=== PATIENT | female | born 1970 | race Two or more races ===

== ENCOUNTER 2017-07-11 23:57 | Emergency (ER) | payer MEDICAID ==
[~2017-07-11] VITALS: Ht 157.5 cm; Wt 56.7 kg
[2017-07-12] MEDS ORDERED: NKM (00:08)
[2017-07-12] MEDS ORDERED: Norco 5mg/325mg tab ORAL ONE (00:30)
--- NOTE | 2017-07-12 00:37 | Emergency Room Report ---
History of Present Illness General Chief Complaint: Headache Source: Patient Present Illness [facility] This is a 47-year-old female with no past medical history. She presents with chief complaint of headache for the last 2 weeks. On and off but more severe tonight. Mostly in the right side. Radiate diffusely. Mild nausea but no vomiting. No fever or chills. No focal deficit. Denies any other complaint. Allergies: Coded Allergies: No Known Allergies (Unverified , 07/12/17) Patient History Past Medical History: see triage record, old chart reviewed Past Surgical History: other Pertinent Family History: none Social History: Denies: smoking Last Menstrual Period: 3 months ago Now: No Immunizations: other Reviewed Nursing Documentation: PMH: Agreed, PSxH: Agreed Nursing Documentation-PMH Past Medical History: No Stated History Review of Systems Eye: Denies: eye pain, blurred vision ENT: Denies: ear pain, nose congestion, throat swelling Respiratory: Denies: cough, shortness of breath Cardiovascular: Denies: chest pain, palpitations Gastrointestinal: Denies: abdominal pain, diarrhea, nausea, vomiting Musculoskeletal: Denies: back pain, joint pain Skin: Denies: rash Neurological: Reports: headache, Denies: numbness Endocrine: Denies: increased thirst, increased urine Hematologic/Lymphatic: Denies: easy bruising All Other Systems: negative except mentioned in HPI Physical Exam Vital Signs Date Time Temp Pulse Resp B/P (MAP) Pulse Ox O2 Delivery O2 Flow Rate FiO2 07/12/17 00:03 97.5 62 16 131/86 97 Room Air vitals normal Sp02 EP Interpretation: reviewed, normal General Appearance: well appearing, no apparent distress, alert Head: normocephalic, atraumatic Eyes: bilateral eye PERRL, bilateral eye EOMI, bilateral eye Fundiscopic - Sharp disc ENT: hearing grossly normal, normal pharynx Neck: full range of motion, supple, no meningismus Respiratory: chest non-tender, lungs clear, normal breath sounds Cardiovascular #1: regular rate, rhythm, no murmur Gastrointestinal: normal bowel sounds, non tender, no mass, no organomegaly, no bruit, non-distended Musculoskeletal: back normal, gait/station normal, normal range of motion Psychiatric: mood/affect normal Skin: warm/dry Medical Decision Making Diagnostic Impression: Primary Impression: Headache Qualified Codes: R51 - Headache ER Course Patient with headache. According to her daughters patient does frequently. Question depression. No evidence of bleed or mass effect. I did a CT scan because patient never had workup done before. No evidence of neoplastic process. We'll discharge home. CT/MRI/US Diagnostic Results CT/MRI/US Diagnostic Results : Imaging Test Ordered: CT head Impression negative per radiologist Last Vital Signs Date Time Temp Pulse Resp B/P (MAP) Pulse Ox O2 Delivery O2 Flow Rate FiO2 07/12/17 00:03 97.5 62 16 131/86 97 Room Air Status: improved Disposition: HOME, SELF-CARE Condition: Stable Scripts Acetamin/Butalbital/Caffeine* (FIORICET*) 1 Ea Tab 1 TAB ORAL Q6H, #30 TAB 0 Refills Prov: JOSE DUNN M.D. 07/12/17 Amitriptyline HCl (ELAVIL*) 25 Mg Tablet 25 MG ORAL BEDTIME, #30 TAB Prov: JOSE DUNN M.D. 07/12/17 Referrals: NOT CHOSEN IPA/,REFERRING (PCP) Patient Instructions: General Headache Without Cause Additional Instructions: Followup with your DrAshley in 7 days. Return if symptom worsen. JOSE DUNN M.D. Jul 12, 2017 00:37
[2017-07-12] MEDS ORDERED: AMITRIPTYLINE25 MG ORAL (01:00)
[2017-07-12] MEDS ORDERED: FIORICET1 EA ORAL (01:00)
[2017-07-12 01:12] VITALS: BP 131/86
--- NOTE | 2017-07-12 08:17 | Diagnostic Imaging Report ---
Indication: Headache Technique: Continuous helical CT scanning of the head was performed without intravenous contrast material. Axial and coronal 5 mm sections were generated. Dose: Total Dose Length Product - DLP [address] Dose Index - CTDIvol(s) 70.38 mGy. Comparison:None. Findings: The ventricular system is normal in size and configuration. There is no shift of midline structures. No abnormal extra-axial fluid collections are noted. There is no evidence of intracerebral bleeding. No other abnormal high or low density areas are noted within the brain. Impression: Normal CT scan of the head without contrast material. The above report is concordant with preliminary reading by [employer] . The CT scanner at [facility] is accredited by the [employer] and the scans are performed using protocols designed to limit radiation exposure to as low as reasonably achievable to attain images of sufficient resolution adequate for diagnostic evaluation.
== END 2017-07-12 01:10 | disposition home or self-care (01) ==
LOC: EMR 07-12 00:29
DX: R51 Headache (principal)
CPT/HCPCS: 70450; 99284

== ENCOUNTER 2018-02-22 12:53 | Emergency (ER) | payer MEDICAID ==
[~2018-02-22] VITALS: Ht 154.9 cm; Wt 59.0 kg
[~2018-02-22 12:53] MED LIST: AMITRIPTYLINE25 MG ORAL; FIORICET1 EA ORAL; NKM
[2018-02-22 13:05] VITALS: BP 139/88
--- NOTE | 2018-02-22 13:23 | Emergency Room Report ---
History of Present Illness General Chief Complaint: Headache Source: Patient Present Illness HPI 47-year-old female patient presents ER complaining of headache 1 week. Patient reports headache is intermittent. Reports RAZO generalized over entire head. Patient denies vomiting, vision loss, fever. Patient denies muscle weakness. Patient denies pain with urination. Patient denies chest pain, shortness of breath, abdominal pain. Patient reports history of headache. Patient was seen here at [facility] a few months ago and had a head CT performed, CT was negative at that time. Patient reports she has not followed up with a her care provider or neurologist since that time. Patient reports numerous stressors at home. denies history of cardiovascular disease. denies history of seizures. Allergies: Coded Allergies: No Known Allergies (Unverified , 07/12/17) Patient History Past Medical History: see triage record Reviewed Nursing Documentation: PMH: Agreed; PSxH: Agreed Nursing Documentation-PMH Past Medical History: No Stated History Review of Systems All Other Systems: negative except mentioned in HPI Physical Exam Vital Signs Date Time Temp Pulse Resp B/P (MAP) Pulse Ox O2 Delivery O2 Flow Rate FiO2 02/22/18 13:01 97.9 68 20 139/88 99 Room Air 97.9 Sp02 EP Interpretation: reviewed, normal General Appearance: well appearing, no apparent distress, alert, GCS 15, non- toxic Head: normocephalic, atraumatic Eyes: bilateral eye normal inspection, bilateral eye PERRL ENT: hearing grossly normal, normal pharynx, no angioedema, normal voice, uvula midline, moist mucus membranes Neck: full range of motion Respiratory: lungs clear, normal breath sounds, no rhonchi, no respiratory distress, no accessory muscle use, no wheezing, speaking full sentences Cardiovascular #1: regular rate, rhythm, no edema Musculoskeletal: back normal, digits/nails normal, gait/station normal, normal range of motion, non-tender Neurologic: alert, oriented x3, responsive, motor strength/tone normal, sensory intact, other - negative Kernig, negative Brudzinski Psychiatric: mood/affect normal Skin: no rash Lymphatic: no adenopathy Medical Decision Making PA Attestation Dr. Anthony is my supervising Physician whom patient management has been discussed with. Diagnostic Impression: Primary Impression: Headache ER Course Pt presents to ED c/o headache. DDX considered but are not limited to migraine, cluster RAZO, tension RAZO. Negative kernig, negative Brudzinski, low suspicion for meningitis. VITAL SIGNS are WNL, patient is afebrile CT performed at last ER visit, in no worsening of symptoms since that time, no history of injury, talking and smiling without difficulty, nontoxic-appearing, patient does not need repeat CT at this time. ER COURSE - Metoclopramide 10mg IM for pain, N/V; possible SE: tics, spasm; CI seizures, HTN - Benadryl 25mg IM ; possible SE: drowsiness Patient asked that the headache may be related to stress at home, inform patient stress may be a cause of headache. Inform patient to follow-up with neuro. Instructed to followup with primary care provider per referral and treatment as needed. Patient reports understanding and agreement treatment plan. Patient reports pain improved. Patient is AOx3, neurologically intact, nontoxic appearing, and ambulatory. DISCHARGE: -Rx provided Excedrin Migraine At this time pt is stable for d/c to home. Patient is resting comfortably, in no acute distress, nontoxic appearing, talking and smiling. Will provide with patient care instructions and any necessary prescriptions. Patient to take medication as instructed. Care plan and follow-up instructions provided. Patient questions asked and answered. Patient instructed to follow-up with primary care provider in the next 3 days and discuss further referral with PCP to neurologist. ER precautions given. Patient instructed to return to ER immediately for any new or worsening of symptoms including but not limited to fever, neck stiffness , vision changes, and neurological symptoms. Last Vital Signs Date Time Temp Pulse Resp B/P (MAP) Pulse Ox O2 Delivery O2 Flow Rate FiO2 02/22/18 13:05 97.9 68 20 139/88 99 Room Air 97.9 Disposition: HOME, SELF-CARE Condition: Stable Scripts Aspirin/Acetaminophen/Caffeine (EXCEDRIN MIGRAINE CAPLET) 1 Each Tablet 1 EACH PO DAILY, #30 TAB Prov: Brayan Mario 02/22/18 Referrals: NOT CHOSEN IPA/,REFERRING (PCP) Patient Instructions: General Headache Without Cause Additional Instructions: Followup with primary care provider in 3 -5 days. Discuss referral to Neuro. Take medications as directed. Patient questions asked and answered. ER precautions given, patient instructed to return to ER immediately for any new or worsening of symptoms. Brayan Mario Feb 22, 2018 13:23
[2018-02-22] MEDS ORDERED: EXCEDRIN MIGRA1 EAC1 PO (13:27)
[2018-02-22 13:37] VITALS: BP 139/88
== END 2018-02-22 13:38 | disposition home or self-care (01) ==
LOC: EMR 13:09
DX: R51 Headache (principal)
CPT/HCPCS: 99284

== ENCOUNTER 2018-04-08 15:47 | Emergency (ER) | payer MEDICAID ==
[~2018-04-08] VITALS: Ht 157.5 cm; Wt 54.4 kg
[~2018-04-08 15:47] MED LIST changes: +EXCEDRIN MIGRA1 EAC1 PO
[2018-04-08 15:53] VITALS: BP 149/94
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
[2018-04-08 17:51] VITALS: BP 121/75
[2018-04-08] MEDS ORDERED: Lidocaine 2% Visc 15ml soln ORAL ONE (18:45)
[2018-04-08] MEDS ORDERED: LIDOCAINE VISC100 ML ORAL (18:57)
[2018-04-08] MEDS ORDERED: TYLENOL EXTRA500 MG ORAL (18:57)
[2018-04-08] MEDS ORDERED: ZANTAC150 MG ORAL (18:57)
[2018-04-08 19:02] VITALS: BP 121/75
--- NOTE | 2018-04-09 08:25 | Diagnostic Imaging Report ---
Indication: Abdominal pain Technique: Supine view of the abdomen Comparison: none Findings: The bowel gas pattern is unremarkable. No gaseous distention of large or small bowel. No unusual masses or calcifications. There are cholecystectomy clips Impression: No acute process This agrees with the preliminary interpretation provided by the emergency room physician
--- NOTE | 2018-04-09 08:26 | Diagnostic Imaging Report ---
Indication: Chest pain Technique: 2 views of the chest Comparison: none Findings: Lungs and pleural spaces are clear. Heart size is normal. Impression: No acute process
== END 2018-04-08 19:02 | disposition home or self-care (01) ==
LOC: EMR 16:28
DX: S30.1XXA Contusion of abdominal wall, initial encounter (principal); Y04.2XXA Assault by strike against or bumped into by another person, initial encounter; Y92.9 Unspecified place or not applicable
CPT/HCPCS: 71046; 74018; 99284

== ENCOUNTER 2019-06-02 11:59 | Emergency (ER) | payer MEDICAID ==
[~2019-06-02] VITALS: Ht 160 cm; Wt 56.7 kg
[~2019-06-02 11:59] MED LIST changes: +LIDOCAINE VISC100 ML ORAL; +TYLENOL EXTRA500 MG ORAL; +ZANTAC150 MG ORAL
[2019-06-02 12:08] VITALS: BP 140/82
--- NOTE | 2019-06-02 12:41 | Emergency Room Report ---
History of Present Illness General Chief Complaint: Pain Source: Patient Present Illness HPI 49-year-old female with no significant past medical history here complaining of over 1 months of left shoulder pain. Patient denies any fall or injury. Reports that her pain starts in the left shoulder and radiates to her left arm and fingers. Rating the pain 7 out of 10 upon certain movements. Has taken Tylenol for pain with minimal relief. Has not yet seen her primary care physician. Denies having any chest pain or pain radiation spreading the chest going into the arm. Denies tingling and numbness. 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 Denies shortness of breath, neck pain, headache, dizziness, and all other associated symptoms. Denies history of arthritis Allergies: Coded Allergies: No Known Allergies (Unverified , 07/12/17) Patient History Past Medical History: see triage record Past Surgical History: unable to obtain Pertinent Family History: none Now: No Immunizations: UTD Reviewed Nursing Documentation: PMH: Agreed; PSxH: Agreed Nursing Documentation-PMH Past Medical History: No Stated History Review of Systems All Other Systems: negative except mentioned in HPI Physical Exam Vital Signs Date Time Temp Pulse Resp B/P (MAP) Pulse Ox O2 Delivery O2 Flow Rate FiO2 06/02/19 12:02 97.9 51 20 140/82 (101) 98 Room Air Sp02 EP Interpretation: reviewed, normal General Appearance: normal inspection, well appearing, no apparent distress, alert, GCS 15 Head: normocephalic, atraumatic Eyes: bilateral eye normal inspection, bilateral eye PERRL ENT: normal pharynx Neck: normal inspection, full range of motion, supple, thyroid normal Respiratory: lungs clear, no rhonchi, no respiratory distress, no retraction, no accessory muscle use, no wheezing Cardiovascular #1: normal inspection, regular rate, rhythm, no edema, no murmur , normal capillary refill Gastrointestinal: normal inspection, non tender, soft Rectal: deferred Genitourinary: no CVA tenderness Musculoskeletal: back normal, digits/nails normal, gait/station normal, non- tender, other - pain upon palpation of left shoulder Neurologic: normal inspection, alert, oriented x3 Psychiatric: normal inspection, judgement/insight normal Skin: palpation normal, normal color Lymphatic: normal inspection, no adenopathy Medical Decision Making PA Attestation All my diagnosis and treatment plans were reviewed ad discussed with my supervising physician Dr. Gill Diagnostic Impression: Primary Impression: Tendonitis of shoulder, left ER Course 49-year-old female with no significant past medical history here complaining of over 1 months of left shoulder pain. Patient denies any fall or injury. Reports that her pain starts in the left shoulder and radiates to her left arm and fingers. Rating the pain 7 out of 10 upon certain movements. Has taken Tylenol for pain with minimal relief. Has not yet seen her primary care physician. Denies having any chest pain or pain radiation spreading the chest going into the arm. Denies tingling and numbness. 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 Denies shortness of breath, neck pain, headache, dizziness, and all other associated symptoms. Denies history of arthritis Ddx considered but are not limited to : Shoulder sprain, tendinitis, bursitis, fracture left shoulder Vital signs: are WNL, pt. is afebrile H&PE are most consistent with: ORDERS: Left shoulder x-ray, naproxen, Robaxin ED INTERVENTIONS: Tendinitis left shoulder DISCHARGE: At this time pt. is stable for d/c to home. Will provide printed patient care instructions, and any necessary prescriptions. Care plan and follow up instructions have been discussed with the patient prior to discharge. Take medication as directed follow-up with a primary care provider physical therapy may help Other X-Ray Diagnostic Results Other X-Ray Diagnostic Results : X-Ray ordered: left shoulder # of Views/Limited Vs Complete: 3 View Indication: Pain EP Interpretation: Yes PA Xray: Interpretation reviewed, by supervising MD, and agrees with findings. Interpretation: no dislocation, no soft tissue swelling, no fractures Impression: No acute disease Electronically Signed by: Karla Ayala PA-C Last Vital Signs Date Time Temp Pulse Resp B/P (MAP) Pulse Ox O2 Delivery O2 Flow Rate FiO2 06/02/19 12:08 97.9 75 20 140/82 98 Room Air Disposition: HOME, SELF-CARE Condition: Stable Referrals: NOT CHOSEN IPA/,REFERRING (PCP) Patient Instructions: Bicipital Tendonitis Additional Instructions: Follow-up with your primary care provider take medication as directed physical therapy may help avoid strenuous physical activity Karla Duarte Jun 02, 2019 12:41
[2019-06-02] MEDS ORDERED: NAPROXEN500 M2 ORAL (13:29)
[2019-06-02] MEDS ORDERED: ROBAXIN500 MG PO (13:29)
[2019-06-02 13:35] VITALS: BP 132/82
--- NOTE | 2019-06-02 13:35 | NUR ---
ER DISCHARGE NOTE: Patient is cleared to be discharged per ERMD, pt is aox4, on room air, with stable vital signs. pt was given dc and prescription instructions, pt was able to verbalize understanding, pt id band removed without complications. pt is able to ambulate with steady gait. pt took all belongings.
--- NOTE | 2019-06-02 13:42 | Diagnostic Imaging Report ---
Indication: left shoulder pain Findings: 3 views of the left shoulder were obtained. Alignment of the left shoulder is normal. No acute fracture is identified. Soft tissues are unremarkable. Impression: No acute injury
== END 2019-06-02 13:35 | disposition home or self-care (01) ==
LOC: EMR 12:23
DX: M75.92 Shoulder lesion, unspecified, left shoulder (principal)
CPT/HCPCS: 99283

== ENCOUNTER 2019-11-29 15:07 | Emergency (ER) | payer MEDICAID ==
[~2019-11-29] VITALS: Ht 157.5 cm; Wt 55.3 kg
[~2019-11-29 15:07] MED LIST changes: +NAPROXEN500 M2 ORAL; +ROBAXIN500 MG PO
[2019-11-29 15:25] VITALS: BP 126/83
--- NOTE | 2019-11-29 15:25 | NUR ---
ED Nurse Note: Pt walked into ED c/o sore throat and neck pain x 3 weeks. Denies fever and chills. Not in any distress. VSS.
--- NOTE | 2019-11-29 15:36 | NUR ---
ED Nurse Note: ERMD at bedside.
--- NOTE | 2019-11-29 15:41 | Emergency Room Report ---
History of Present Illness General Chief Complaint: Sore Throat Source: Patient Present Illness HPI Is a 49-year-old female presents after increased sore throat as well as difficulty with swallowing. Patient reports having had increased pain with movement of her neck. Denies recent trauma. She reports having recent sore throat as well as bilateral ear pain. Denies any fever. Had gradual onset of symptoms. Denies any vomiting or diarrhea. Denies prior medical history. Denies any visual changes. Allergies: Coded Allergies: No Known Allergies (Unverified , 07/12/17) Nursing Documentation-[facility] Past Medical History: No Stated History Physical Exam Vital Signs Date Time Temp Pulse Resp B/P (MAP) Pulse Ox O2 Delivery O2 Flow Rate FiO2 11/29/19 15:19 98.1 62 18 126/83 (97) 99 Room Air Medical Decision Making ER Course Presented for sore throat. Differential diagnosis included but was not limited to meningitis, exudative tonsillitis, retropharyngeal abscess, epiglottitis, strep pharyngitis. Because of complexity of patient's case imaging studies were ordered. CT of the neck was ordered without IV contrast due to patient's difficulty with range of motion of her neck. Last Vital Signs Date Time Temp Pulse Resp B/P (MAP) Pulse Ox O2 Delivery O2 Flow Rate FiO2 11/29/19 15:25 98.1 62 18 126/83 99 Room Air Shiraz Gill MD Nov 29, 2019 15:41
[2019-11-29] MEDS ORDERED: Dexamethasone 4mg/ml vial IM ONE (15:45)
--- NOTE | 2019-11-29 16:10 | NUR ---
ED Nurse Note: Pt ambulated to CT accompanied by tech.
--- NOTE | 2019-11-29 16:30 | NUR ---
Note ariel in EDM - 11/29/19 at 1645 by JOSE ED Nurse Note: Fly swabs done, sent to labs.
--- NOTE | 2019-11-29 16:30 | NUR ---
ED Nurse Note: Flu swabs done, sent to labs.
--- NOTE | 2019-11-29 17:03 | Diagnostic Imaging Report ---
Indication: Neck pain. Technique: Continuous helical imaging of the neck was obtained transaxially from the skull base to the upper thoracic spine. 2-D coronal and sagittal reformatted images were obtained. Total Dose length Product (DLP): 185.[address] Dose Index Volume (CTDIvol): 6.3 mGy Comparison: None Findings: Skull base structures are unremarkable. Mastoids are clear bilaterally. The visualized nasopharynx, oropharynx, and hypopharynx appears unremarkable. There is no mass or asymmetry identified. Supraglottic structures including the epiglottis and aryepiglottic folds appear normal. There is no abscess or evidence of abnormal fluid collection within the neck. The larynx is unremarkable. The subglottic airway is clear. There is no lymphadenopathy. The parotid, thyroid, submandibular and sublingual glands appear unremarkable. Impression: Negative contrast-enhanced CT of the neck. The CT scanner at [facility] is accredited by the [employer] and the scans are performed using dose optimization techniques as appropriate to a performed exam including Automatic Exposure control.
[2019-11-29] MEDS ORDERED: ACETAMINOPHEN500 M3 ORAL (17:12)
[2019-11-29] MEDS ORDERED: AMOXICILLIN500 MG ORAL (17:12)
[2019-11-29 17:16] VITALS: BP 126/83
--- NOTE | 2019-11-29 17:16 | NUR ---
ER DISCHARGE NOTE: Patient is cleared to be discharged per ERMD, pt is aox4, on room air, with stable vital signs. pt was given dc and prescription instructions, pt was able to verbalize understanding, pt id band removed. pt is able to ambulate with steady gait. pt took all belongings.
== END 2019-11-29 17:30 | disposition home or self-care (01) ==
LOC: EMR 17:30
DX: R07.0 Pain in throat (principal); M54.2 Cervicalgia
CPT/HCPCS: 70490; 86710; 96372; J1100; Z7502; 99284

== ENCOUNTER 2020-05-02 13:19 | Emergency (ER) | payer MEDICAID ==
[~2020-05-02] VITALS: Ht 157.5 cm; Wt 56.7 kg
[~2020-05-02 13:19] MED LIST changes: +ACETAMINOPHEN500 M3 ORAL; +AMOXICILLIN500 MG ORAL
[2020-05-02 13:31] VITALS: BP 119/76
--- NOTE | 2020-05-02 13:41 | NUR ---
ED Nurse Note: Pt from home walked in due to sore throat x 4 months. Denies coughing and fever. AAO x4 and ambulatory.
[2020-05-02] MEDS ORDERED: Methocarbamol 500mg tab ORAL ONE (14:00)
--- NOTE | 2020-05-02 15:11 | Emergency Room Report ---
History of Present Illness General Chief Complaint: Sore Throat Source: Patient Present Illness HPI 50-year-old female presents to the emergency department complaining of 8 out of 10 in severity anterior sore throat pain with progressive neck stiffness. She reports pain is exacerbated upon swallowing and has radiation to the bilateral ears. Patient states that her symptoms have been progressive and she experiences them every single day. Patient states that she is now having difficulty sleeping due to pain and excessive worry over her condition. Patient reports that 6 months ago she had similar symptoms but to a much milder degree and was evaluated and was treated for tonsillitis. Patient states that her symptoms never got better and they have continued to progress. Patient states that she does not have a primary care provider and did not have ENT follow-up since her last evaluation for the symptoms. She denies fevers or chills. She denies swelling of the lips or tongue. She denies difficulty breathing. She denies night sweats or significant changes in weight. She denies significant past medical history. Patient denies familial history of thyroid disorders. Patient reports that lung cancer unrelated to smoking does run in her family. She denies trauma or fall. She denies midline neck pain. She denies RAZO. She denies visual or auditory changes. She denies dizziness or syncope. She denies CP. Allergies: Coded Allergies: No Known Allergies (Unverified , 07/12/17) COVID-19 Screening Contact w/high risk pt: No Recent Travel to affected area: No Experienced COVID-19 symptoms?: No COVID-19 Testing performed MUTTON PUNCHER: No Patient History Past Medical History: see triage record Past Surgical History: none Pertinent Family History: none Now: No Reviewed Nursing Documentation: PMH: Agreed; PSxH: Agreed Nursing Documentation-PMH Past Medical History: No Stated History Review of Systems All Other Systems: negative except mentioned in HPI Physical Exam Vital Signs Date Time Temp Pulse Resp B/P (MAP) Pulse Ox O2 Delivery O2 Flow Rate FiO2 05/02/20 13:31 98.1 64 16 119/76 100 Room Air Sp02 EP Interpretation: reviewed, normal General Appearance: no apparent distress, alert, GCS 15, non-toxic Head: normocephalic, atraumatic Eyes: bilateral eye normal inspection, bilateral eye PERRL ENT: hearing grossly normal, normal pharynx, no angioedema, normal voice, TMs + canals normal, uvula midline, moist mucus membranes, other - no stridor Neck: full range of motion, thyroid normal - no visible or palpable thyromegaly , no meningismus, no bony tend, tender lateral - bilateral SCM tenderness Respiratory: chest non-tender, lungs clear, normal breath sounds, no wheezing, speaking full sentences Cardiovascular #1: regular rate, rhythm Musculoskeletal: back normal, normal range of motion, gait/station normal, non- tender Neurologic: alert, motor strength/tone normal, oriented x3, sensory intact, responsive, speech normal Psychiatric: judgement/insight normal Skin: no rash, normal color Lymphatic: no adenopathy Medical Decision Making PA Attestation Dr. Watson Is my supervising Physician whom patient management has been discussed with. Diagnostic Impression: Primary Impression: Neck pain without injury Additional Impression: Neck pain of over 3 months duration ER Course 50-year-old female presents to the emergency department complaining of 8 out of 10 in severity anterior sore throat pain with progressive neck stiffness. She reports pain is exacerbated upon swallowing and has radiation to the bilateral ears. Patient states that her symptoms have been progressive and she experiences them every single day. Patient states that she is now having difficulty sleeping due to pain and excessive worry over her condition. Patient reports that 6 months ago she had similar symptoms but to a much milder degree and was evaluated and was treated for tonsillitis. Patient states that her symptoms never got better and they have continued to progress. Patient states that she does not have a primary care provider and did not have ENT follow-up since her last evaluation for the symptoms. She denies fevers or chills. She denies swelling of the lips or tongue. She denies difficulty breathing. She denies night sweats or significant changes in weight. She denies significant past medical history. Patient denies familial history of thyroid disorders. Patient reports that lung cancer unrelated to smoking does run in her family. She denies trauma or fall. She denies midline neck pain. She denies RAZO. She denies visual or auditory changes. She denies dizziness or syncope. She denies CP. Ddx considered but are not limited to: pharyngitis, strep, MUTTON PUNCHER, ludwigs angina, URI, thyroid disorder, goiter, cancer, anxiety,muscle spasm just to name a few. Vital signs: are WNL, pt. is afebrile H&PE are most consistent with: chronic neck pain condition- non-infectious in etiology. No obvious visible or palpable goiter/nodules. NO LAD, pt. has ttp to both SCM muscles. ORDERS: -CT Neck non-Contrasted: d/w pt. the large amount of radiation a CT poses and the sensitive structures in the neck . d/w pt. benefits vs. cons. Pt. felt that given her progression of constant symptoms the risk of radiation and subsequent complications does not out-weight benefits of knowing if there are any changes in her neck or having re-assurance. --CT NEck was WNL. ED INTERVENTIONS: -Robaxin PO pt. reports complete resolution of her symptoms after taking administered robaxin. D/W pt. that most likely etiology of her symptoms are musculature in location. -I do not identify an emergent condition at this time. With current presentation , pt. is stable for close outpatient follow up and conservative treatment. D/ w pt. to return promptly to ED with worsening or new symptoms.- Pt. verbalizes' understanding and agreement with proposed treatment plan. DISCHARGE: At this time pt. is stable for d/c to home. Will provide printed patient care instructions, and any necessary prescriptions. Care plan and follow up instructions have been discussed with the patient prior to discharge. CT/MRI/US Diagnostic Results CT/MRI/US Diagnostic Results : Imaging Test Ordered: CT Neck No Contrast Impression " Impression: Limited study in the absence of intravenous contrast. Given these limitations: No evidence of mass effect, significant inflammatory changes or prevertebral soft tissue swelling. " --Per official radiology report- Please see report for specific details. Last Vital Signs Date Time Temp Pulse Resp B/P (MAP) Pulse Ox O2 Delivery O2 Flow Rate FiO2 05/02/20 13:31 98.1 64 16 119/76 (90) 100 Room Air Disposition: HOME, SELF-CARE Condition: Stable Scripts Ibuprofen* (MOTRIN*) 400 Mg Tablet 400 MG ORAL THREE TIMES A DAY, #20 TAB 0 Refills Prov: Cleopatra Miles 05/02/20 Methocarbamol* (ROBAXIN-750*) 750 Mg Tablet 750 MG PO QID for 7 Days, #28 TAB 0 Refills Prov: Cleopatra Miles 05/02/20 Referrals: NOT CHOSEN IPA/,REFERRING (PCP) Arturo Amaro [facility]. [facility] Patient Instructions: Medical Screening Exam Additional Instructions: Take medications as directed. Do not drink alcohol, drive, or operate heavy machinery while taking Robaxin ( Muscle Relaxers) as this may cause drowsiness. Follow up with a Primary Care Provider in 3-5 days, even if your symptoms have resolved. --Please review list of primary care clinics, if you do not already have a primary care provider Return sooner to ED if new symptoms occur, or current symptoms become worse. - Please note that this Emergency Department Report was dictated using Mr[employer] plate maker technology software, occasionally this can lead to erroneous entry secondary to interpretation by the dictation equipment. Cleopatra Miles May 02, 2020 15:11
--- NOTE | 2020-05-02 16:25 | Diagnostic Imaging Report ---
CT NECK SOFT TISSUE Indication: Sore throat Technique: Continuous helical imaging of the neck was obtained transaxially from the skull base to the upper thoracic spine without intravenous contrast. 2-D coronal and sagittal reformatted images were obtained. Total Dose length Product (DLP): 154.[address] Dose Index Volume (CTDIvol): 5.2 mGy Comparison: CT neck soft tissue dated 11/29/2019 Findings: Skull base structures are unremarkable. Mastoids are clear bilaterally. The visualized nasopharynx, oropharynx, and hypopharynx appears unremarkable. There is no mass or asymmetry identified. Supraglottic structures including the epiglottis and aryepiglottic folds appear normal. Tiny diverticulum is noted arising from the anterior lateral airway at the level of the hyoid bone. The larynx is unremarkable. The subglottic airway is clear. There is no lymphadenopathy. The parotid, thyroid, submandibular and sublingual glands appear unremarkable. No prevertebral soft tissue swelling. There are multilevel discogenic degenerative changes of the visualized spine. Impression: Limited study in the absence of intravenous contrast. Given these limitations: No evidence of mass effect, significant inflammatory changes or prevertebral soft tissue swelling. The CT scanner at [facility] is accredited by the [employer] and the scans are performed using dose optimization techniques as appropriate to a performed exam including Automatic Exposure control.
[2020-05-02] MEDS ORDERED: ROBAXIN-750750 MG PO (16:39)
[2020-05-02] MEDS ORDERED: IBUPROFEN400 MG ORAL (16:39)
[2020-05-02 16:47] VITALS: BP 122/80
--- NOTE | 2020-05-02 16:47 | NUR ---
ER DISCHARGE NOTE: Patient is cleared to be discharged per PA, pt is aox4, on room air, with stable vital signs. pt was given dc and prescription instructions, pt was able to verbalize understanding, pt id band removed. pt is able to ambulate with steady gait. pt took all belongings.
== END 2020-05-02 16:47 | disposition home or self-care (01) ==
LOC: EMR 13:39
DX: M54.2 Cervicalgia (principal); R07.0 Pain in throat
CPT/HCPCS: 70490; Z7502; 99284